=== PATIENT | female | born 1990 | race Caucasian/White ===

== ENCOUNTER 2017-09-26 13:46 | Inpatient (IN) | payer OTHER ==
[~2017-09-26] VITALS: Ht 165.1 cm; Wt 63.0 kg
[2017-09-26] MEDS ORDERED: SODIUM CHLORIDE 0.9% 1,000ML IVBOLUS ONE ×2 (14:00→16:30)
[2017-09-26] MEDS ORDERED: PLEASE ENTER HEIGHT AND WEIGHT MC SCH (14:30)
[2017-09-26 14:47] LABS: BASOPHILS # (AUTO) 0.03 x10^3/uL (0-0.1); BASOPHILS % (AUTO) 0 % (0-1); EOSINOPHILS # (AUTO) 0.04 x10^3/uL (0-0.4); EOSINOPHILS % (AUTO) 0 % (1-7); LYMPHOCYTES # (AUTO) 1.43 x10^3/uL (1-3.4); LYMPHOCYTES % (AUTO) 9 % (22-44); MD NO; MEAN CORPUSCULAR HEMOGLOBIN 28.7 pg (27.0-34.8); MEAN CORPUSCULAR HGB CONC 34.2 g/dL (32.4-35.8); MEAN CORPUSCULAR VOLUME 83.9 fL (80-100); MEAN PLATELET VOLUME 9.2 fL (7.4-10.4); MONOCYTES # (AUTO) 1.05 x10^3/uL (0.2-0.8); MONOCYTES % (AUTO) 6 % (2-9); NEUTROPHILS % (AUTO) 85 % (42-75); PLATELET COUNT 203 x10^3/uL (130-400); RED BLOOD COUNT 3.42 x10^6/uL (3.82-5.3)
[2017-09-26 14:56] LABS: ANION GAP 7 mmol/L (5-15); CALCIUM 7.7 mg/dL (8.5-10.1); CHLORIDE 110 mmol/L (98-107)
[2017-09-26 14:58] LABS: ALANINE AMINOTRANSFERASE 24 U/L (12-78); ALKALINE PHOSPHATASE 69 U/L (45-117); BILIRUBIN,TOTAL 0.4 mg/dL (0.2-1.0); CREATINE KINASE, TOTAL 608 U/L (26-192); CREATININE 1.02 mg/dL (0.55-1.02); TOTAL PROTEIN 6.9 g/dL (6.4-8.2)
[2017-09-26 15:03] LABS: AMPHETAMINE SCREEN, URINE Positive (Negative); BARBITURATE SCREEN, URINE Negative (Negative); BENZODIAZEPINE SCREEN, URINE Positive (Negative); CANNABINOID SCREEN, URINE Negative (Negative); COCAINE SCREEN, URINE Negative (Negative); METHADONE SCREEN, URINE Negative (Negative); OPIATE SCREEN, URINE Positive (Negative)
[2017-09-26 15:04] LABS: ACETAMINOPHEN < 2 mcg/mL (10-30)
[2017-09-26 15:16] LABS: MICROSCOPIC INDICATED
[2017-09-26] MEDS ORDERED: PIPERACILLIN/TAZO/PMX 4.5GM 100 ML IV ONE (15:30)
[2017-09-26 15:42] LABS: CULTURE INDICATED? NO
[2017-09-26] MEDS ORDERED: ACETAMINOPHEN 325 MG TABLET PO PRN (18:00)
[2017-09-26] MEDS ORDERED: ONDANSETRON ODT 4 MG PO PRN (18:00)
[2017-09-26] MEDS ORDERED: hydrALAzine 20 MG/ML, 1ML IVPush PRN (18:00)
[2017-09-26] MEDS ORDERED: LABETALOL 5MG/ML, 20ML IVPush PRN (18:00)
[2017-09-26] MEDS ORDERED: IBUPROFEN 600 MG TABLET PO PRN (18:00)
[2017-09-26 19:25] VITALS: BP 97/62
[2017-09-26 21:00] VITALS: BP 97/62
[2017-09-26] MEDS: ENOXAPARIN 40 MG/0.4 ML SQ SCH (21:32)
[2017-09-26] MEDS: D5%-0.45NACL+KCL 20MEQ 1,000 ML IV SCH (21:32)
[2017-09-27] MEDS: PIPERACILLIN/TAZO/PMX 3.375GM 50 ML IV SCH ×2 (00:29→08:31)
[2017-09-27 01:58] VITALS: BP 105/69
[2017-09-27 04:44] LABS: BASOPHILS # (AUTO) 0.07 x10^3/uL (0-0.1); BASOPHILS % (AUTO) 1 % (0-1); EOSINOPHILS # (AUTO) 0.09 x10^3/uL (0-0.4); EOSINOPHILS % (AUTO) 1 % (1-7); LYMPHOCYTES # (AUTO) 1.66 x10^3/uL (1-3.4); LYMPHOCYTES % (AUTO) 20 % (22-44); MD NO; MEAN CORPUSCULAR HEMOGLOBIN 27.7 pg (27.0-34.8); MEAN CORPUSCULAR HGB CONC 32.9 g/dL (32.4-35.8); MEAN CORPUSCULAR VOLUME 84.3 fL (80-100); MEAN PLATELET VOLUME 9.4 fL (7.4-10.4); MONOCYTES # (AUTO) 0.85 x10^3/uL (0.2-0.8); MONOCYTES % (AUTO) 10 % (2-9); NEUTROPHILS # (AUTO) 5.76 x10^3/uL (1.8-6.8); NEUTROPHILS % (AUTO) 68 % (42-75); PLATELET COUNT 175 x10^3/uL (130-400); RED BLOOD COUNT 3.52 x10^6/uL (3.82-5.3); RED CELL DISTRIBUTION WIDTH 16.3 % (9.6-15.2)
[2017-09-27 05:02] LABS: CALCIUM 7.6 mg/dL (8.5-10.1); CHLORIDE 112 mmol/L (98-107)
[2017-09-27 05:07] LABS: ANION GAP 7 mmol/L (5-15); CREATININE 0.74 mg/dL (0.55-1.02)
[2017-09-27 07:00] VITALS: BP 118/74
[2017-09-27] MEDS: D5%-0.45NACL+KCL 20MEQ 1,000 ML IV SCH ×2 (08:31→20:22)
[2017-09-27] MEDS ORDERED: CEFTRIAXONE 1,000 MG in SODIUM CHLORIDE 0.9% 50 ML IV SCH (11:00)
[2017-09-27 13:41] VITALS: BP 110/68
[2017-09-27] MEDS: DOXYCYCLINE 100 MG in DEXTROSE 5% 250 ML IV SCH (14:02)
[2017-09-27 19:01] VITALS: BP 121/88
[2017-09-27] MEDS: ENOXAPARIN 40 MG/0.4 ML SQ SCH (20:22)
[2017-09-28] MEDS: DOXYCYCLINE 100 MG in DEXTROSE 5% 250 ML IV SCH (01:14)
[2017-09-28 02:46] VITALS: BP 107/63
[2017-09-28] MEDS: D5%-0.45NACL+KCL 20MEQ 1,000 ML IV SCH (06:00)
[2017-09-28 06:13] LABS: CHLORIDE 112 mmol/L (98-107)
[2017-09-28 06:14] LABS: BASOPHILS # (AUTO) 0.02 x10^3/uL (0-0.1); BASOPHILS % (AUTO) 0 % (0-1); EOSINOPHILS # (AUTO) 0.16 x10^3/uL (0-0.4); EOSINOPHILS % (AUTO) 3 % (1-7); LYMPHOCYTES % (AUTO) 38 % (22-44); MD NO; MEAN CORPUSCULAR HEMOGLOBIN 28.3 pg (27.0-34.8); MEAN CORPUSCULAR HGB CONC 33.3 g/dL (32.4-35.8); MEAN PLATELET VOLUME 9.4 fL (7.4-10.4); MONOCYTES # (AUTO) 0.55 x10^3/uL (0.2-0.8); MONOCYTES % (AUTO) 10 % (2-9); NEUTROPHILS # (AUTO) 2.68 x10^3/uL (1.8-6.8); NEUTROPHILS % (AUTO) 49 % (42-75); PLATELET COUNT 172 x10^3/uL (130-400); RED BLOOD COUNT 3.57 x10^6/uL (3.82-5.3); RED CELL DISTRIBUTION WIDTH 16.6 % (9.6-15.2)
[2017-09-28 06:21] LABS: ANION GAP 7 mmol/L (5-15); CREATININE 0.79 mg/dL (0.55-1.02)
[2017-09-28 06:22] LABS: CREATINE KINASE, TOTAL 175 U/L (26-192)
[2017-09-28 06:59] VITALS: BP 123/80
[2017-09-28] MEDS ORDERED: DOXY100T PO (09:03)
[2017-09-28] MEDS ORDERED: CEFD300C37 PO (09:03)
== END 2017-09-28 10:52 | disposition home or self-care (01) | DRG 871 ==
LOC: EDSEX 13:46 → ED 16:11 → EDIP 17:52 → 3NE 19:09 → DCLOUNGE 09-28 10:40
PROVIDERS: ADMIT Hospitalist; ATTEND Hospitalist
PROC: 0T9B70Z Drainage of Bladder with Drainage Device, Via Natural or Artificial Opening (ICD-10-PCS; principal; 2017-09-26)
DX: A41.9 Sepsis, unspecified organism (principal); G92 Toxic encephalopathy; J18.9 Pneumonia, unspecified organism; E44.0 Moderate protein-calorie malnutrition; J98.11 Atelectasis; M62.82 Rhabdomyolysis; E16.2 Hypoglycemia, unspecified; E83.51 Hypocalcemia; E87.6 Hypokalemia; J45.909 Unspecified asthma, uncomplicated; T40.1X1A Poisoning by heroin, accidental (unintentional), initial encounter; T43.621A Poisoning by amphetamines, accidental (unintentional), initial encounter; T42.4X1A Poisoning by benzodiazepines, accidental (unintentional), initial encounter; Y92.89 Other specified places as the place of occurrence of the external cause; Z68.23 Body mass index [BMI] 23.0-23.9, adult; E86.0 Dehydration; F11.10 Opioid abuse, uncomplicated; F15.10 Other stimulant abuse, uncomplicated; F13.10 Sedative, hypnotic or anxiolytic abuse, uncomplicated
CPT/HCPCS: 36415; 70450; 71045; 80048; 80053; 80307; 80329; 81001; 82550; 82553; 83605; 83735; 84100; 84703; 85025; 87040; 93005; 96361; 96365; J0696; J1650; J2543; J7060; G0480; J3480; J7030